=== PATIENT | female | born 1940 | race Asian ===

== ENCOUNTER 2016-09-11 09:27 | Emergency (ER) | payer MEDICARE, BC ==
[~2016-09-11] VITALS: Ht 157.5 cm; Wt 72.7 kg
[2016-09-11 09:30] VITALS: BP 147/67
== END 2016-09-11 12:19 | disposition home or self-care (01) ==
LOC: ED 12:13
DX: M54.16 Radiculopathy, lumbar region (principal); M51.16 Intervertebral disc disorders with radiculopathy, lumbar region; M54.5 Low back pain; Z87.891 Personal history of nicotine dependence
CPT/HCPCS: 72110; 93971; 99284; J7512